=== PATIENT | female | born 1965 | race Caucasian/White ===

== ENCOUNTER 2022-12-23 15:47 | Emergency (ER) | payer BC, OTHER, SELFPAY ==
--- NOTE | 2022-12-23 16:17 | ED.GENADULT ---
HPI - General Adult General Chief complaint: Upper Respiratory Infection Stated complaint: sorethroat Time Seen by Provider: 12/23/22 16:17 Source: patient Mode of arrival: ambulatory Limitations: no limitations History of Present Illness HPI narrative: 57-year-old female patient presents to the [facility] with complaints of fevers, body aches, chills and sore throat the past 3-4 days. Patient states the sore throat got worse yesterday. Denies any chest pain, shortness of breath cough. Denies any abdominal pain, nausea, vomiting or diarrhea. Related Data Home Medications Medication Instructions Recorded Confirmed No Home Medications 12/23/22 12/23/22 Allergies Allergy/AdvReac Type Severity Reaction Status Date / Time Sulfa (Sulfonamide Allergy Severe Verified 01/09/12 09:58 Antibiotics) codeine Allergy Unknown Verified 09/18/12 14:15 sulfanilamide Allergy Unknown Verified 09/18/12 14:15 ANESTHETIC PERSERVATIVES Allergy Unknown CONVULSIONS, Uncoded 05/30/16 16:43 HEART PALPITATIONS, HYPERVENTILATES Review of Systems Review of Systems: CONSTITUTIONAL: Positive fever, chills, or sweats. EYES: Denies visual changes, redness, or discharge. ENT: Denies rhinorrhea, congestion, positive sore throat, deniesotalgia. CARDIOVASCULAR: Denies chest pain, palpitations, or edema. RESPIRATORY: Denies cough or dyspnea. GASTROINTESTINAL: Denies abdominal pain, nausea, vomiting, or diarrhea. GENITOURINARY: Denies dysuria or hematuria. SKIN: Denies rash or itching. MUSCULOSKELETAL: Denies back pain, joint pain, or myalgia. NEUROLOGIC: Denies headache, numbness, or weakness. PSYCHIATRIC: Denies anxiety or depression. [facility] Past Medical History Medical History Anemia Anxiety Arthritis Chronic back pain Depression Eczema Mitral valve prolapse Surgical History Surgical History H/O: hysterectomy Family History Family History Mother Asthma Sibling Asthma Family history of coronary artery disease Acute myocardial infarction Father Family history of diabetes mellitus in first degree relative Family history of lung cancer Social History Social History Smoking end date: 11/19/02 Alcohol intake: current Gender identity (if verbalized by the patient): Female Comments At the time of my signature I agree with nursing past medical history, surgical, social, and family history. There is no relevant family history pertinent to the presenting complaint. Exam Narrative: GENERAL: Well-appearing, well-nourished, and in no acute distress. HEAD: Normocephalic, atraumatic. EYES: PERRLA and EOMI. ENT: Nares clear, no rhinorrhea or epistaxis. Mucous membranes moist. posterior pharynx with slight erythema. No tonsillar enlargement, no exudates or lesions present NECK: Supple. Tender cervical lymphadenopathy CHEST: Clear to auscultation. No respiratory distress. HEART: Regular rate and rhythm. No murmur heard. Normal peripheral pulses. ABDOMEN: Soft, nontender, nondistended, normal active bowel sounds. EXTREMITIES: Normal range of motion. No edema. SKIN: Warm, dry, no rash. NEURO: No focal deficits. Alert and oriented x3. Course Course Level of Care: Express Care Visit Reevaluation(s) Reevaluation #1: Notified patient her strep test today is negative. Discussed with her we will send it to lab for verification if it does come back positive we will call her an antibiotic at this at that time. Date: 12/23/22 Time: 16:32 Vital Signs Vital signs: Vital Signs Temperature 36.7 C 12/23/22 16:19 Pulse Rate 81 12/23/22 16:19 Respiratory Rate 18 12/23/22 16:19 Blood Pressure 100/52 L 12/23/22 16:19 Pulse Oximetry 98 12/23/22 16:19 Oxygen Delivery Room Air
[2022-12-23 16:19] VITALS: BP 100/52; PULSE 81; RESP 18; TEMP 36.7; O2SAT 98
== END 2022-12-23 16:43 | disposition home or self-care (01) ==
PROVIDERS: Emergency Provider Nurse Practitioner Family; PCP Nurse Practitioner Family
DX: J02.9 Acute pharyngitis, unspecified (principal)
CPT/HCPCS: 87081; 87880; 99213; G0463

== ENCOUNTER 2023-06-18 15:08 | Outpatient (CLI) | payer BC, OTHER, SELFPAY ==
--- NOTE | ~2023-06-18 | MM_ITS ---
EXAMINATION: MM screening viv[facility] BI w [facility] HISTORY: Screening mammogram TECHNIQUE: Craniocaudal and mediolateral oblique 3-D tomosynthesis images were obtained and synthetic 2-D images were generated. CAD analysis was submitted and interpreted. COMPARISON: 05/16/2019, 01/25/2018, 09/15/2016 bilateral screening mammogram examinations BREAST PARENCHYMAL COMPOSITION: There are scattered areas of fibroglandular density. FINDINGS: There is no evidence of suspicious mass, calcification, or architectural distortion to sugg est malignancy in either breast. There has been no suspicious interval change. IMPRESSION: 1. No mammographic evidence of malignancy. 2. Recommend routine screening mammography in one year. BI-RADS Category 1: Negative Reviewed, dictated and finalized at location A.
== END 2023-06-18 15:09 | disposition home or self-care (01) ==
LOC: ANHIMG 15:14
PROVIDERS: PCP Nurse Practitioner Family; Visit Provider Nurse Practitioner Family
DX: Z12.31 Encounter for screening mammogram for malignant neoplasm of breast (principal)
CPT/HCPCS: 77063; 77067